=== PATIENT | female | born 1945 | race Caucasian/White ===

== ENCOUNTER 2018-09-30 09:22 | Outpatient (CLI) | payer MEDICARE ==
--- NOTE | 2018-09-30 11:14 | MRI ---
MR ANGIOGRAM OF THE TELLER OF MICHELLE: COMPARISON: 11/12/2013, 11/01/2015. TECHNIQUE: MR angiogram of the levelock of Michelle is performed in the axial plane utilizing 3D [id number] imag ing. Maximum intensity projection images are submitted for interpretation. FINDINGS: Symmetric flow-related signal in the distal cervical and intracranial internal carotid arteries. ANTERIOR CIRCULATION: Symmetric flow-related signal of the A1 and M1 segments. Appropriate flow-related signal in the prox imal A2 segments and proximal MCA branches. 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 POSTERIOR CIRCULATION: Appropriate flow-related signal is visualized intracranial vertebral arteries. Basilar artery has ap propriate flow-related signal. There is a origin of the right posterior cerebral artery. The left P1 segment is unremarkable. IMPRESSION: Stable right PCOM aneurysm. POS: GUS
== END 2018-09-30 09:23 | disposition home or self-care (01) ==
LOC: TBSIIMAG 09:22
PROVIDERS: ATTEND Neurological Surgery
DX: I67.1 Cerebral aneurysm, nonruptured (principal)
CPT/HCPCS: 70544

== ENCOUNTER 2020-06-27 12:57 | Outpatient (CLI) | payer MEDICARE | END 2020-06-27 12:58 | disposition home or self-care (01) | LOC: TBSIIMAG 12:57 | DX: M25.511 Pain in right shoulder (principal); M47.812 Spondylosis without myelopathy or radiculopathy, cervical region | CPT/HCPCS: 72141 ==

== ENCOUNTER 2021-12-05 12:34 | Outpatient (CLI) | payer MEDICARE | END 2021-12-05 12:35 | disposition home or self-care (01) | LOC: TBSIIMAG 12:34 | PROVIDERS: ATTEND Neurological Surgery | DX: I67.1 Cerebral aneurysm, nonruptured (principal) | CPT/HCPCS: 70544 ==